=== PATIENT | female | born 1965 | race Caucasian/White ===

== ENCOUNTER 2024-07-13 09:08 | Outpatient (CLI) | payer OTHER, SELFPAY ==
--- NOTE | ~2024-07-13 | XR_ITS ---
XR chest 2V Ordering provider: Chris Llamas DO History: 58 years Female with . R05.3 - Chronic cough . Comparison: None. FINDINGS: MEDIASTINUM: The cardiac silhouette is not enlarged. LUNGS: No infiltrates, effusions or pneumothorax. OTHER: No free air under the diaphragm. Degenerative changes of the spine. IMPRESSION: No acute cardiopulmonary pathology. Reviewed, dictated and finalized at location A. [facility]
== END 2024-07-13 09:09 | disposition home or self-care (01) ==
LOC: MICIMG 09:11
PROVIDERS: PCP Family Medicine; Visit Provider Family Medicine
DX: R05.3 Chronic cough (principal)
CPT/HCPCS: 71046

== ENCOUNTER 2024-08-02 14:45 | Outpatient (CLI) | payer OTHER, SELFPAY | END 2024-08-02 14:46 | disposition home or self-care (01) | PROVIDERS: PCP Family Medicine; Visit Provider Family Medicine | DX: R05.3 Chronic cough (principal) | CPT/HCPCS: 94060; 94726; 94729 ==